=== PATIENT | male | born 1965 | race Hispanic/Latino ===

== ENCOUNTER 2018-06-16 13:26 | Observation (INO) | payer MEDICARE, OTHER ==
--- NOTE | 2018-06-16 14:38 | ED PDOC ---
HPI: Chest Pain Time Seen by Provider: 06/16/18 13:45 Chief Complaint (Nursing): Chest Pain History Per: Patient History/Exam Limitations: no limitations Onset/Duration Of Symptoms: Hrs (6) Current Symptoms Are (Timing): Better Severity: Mild Pain Scale Rating Of: 2 Quality: Dull Modifying Factors: None Exacerbating Factors: None Alleviating Factors: Rest Nitro Therapy Administered: 1, Per ED Past Medical History Reviewed: Historical Data, Nursing Documentation, Vital Signs Vital Signs: Last Vital Signs Temp 98.4 F 06/16/18 13:37 Pulse 95 H 06/16/18 13:37 Resp 16 06/16/18 13:37 BP 120/92 H 06/16/18 13:37 Pulse Ox 98 06/16/18 13:37 Primary Care Provider: Non [facility] Provider, - Medical History PMH: HTN, Pneumothorax - Surgical History Surgical History: No Surg Hx - Family History Family History: States: No Known Family Hx - Home Medications Home Medications: Ambulatory Orders Medication Instructions Recorded Atenolol [Tenormin] 25 mg PO DAILY 06/16/18 Atorvastatin [Lipitor] 10 mg PO DAILY 06/16/18 Citalopram [celeXA] 20 mg PO DAILY 06/16/18 - Allergies Allergies/Adverse Reactions: Allergies Allergy/AdvReac Type Severity Reaction Status Date / Time No Known Allergies Allergy Verified 06/16/18 13:31 TORRIE Risk Score for UA/NSTEMI - TORRIE Risk Score Age > 64: NO 3 or more CAD Risk Factors: YES Known CAD (Stenosis greater than 50%): NO Aspirin use in past 7 days: NO Severe Angina: NO EKG ST changes greater than 0.5mm: NO Positive Cardiac Marker: NO TORRIE Score: 1 Risk %: 5% Wells Criteria for PE - Wells Criteria for Pulmonary Embolism Clinical Signs and Symptoms of DVT: No P.E is #1 Diagnosis, or Equally Likely: No Heart Rate >100: No Immobilization at least 3 days;Surgery previous 4 weeks: No Previous, objectively diagnosed PE or DVT: No Hemoptysis: No Malignancy w/treatment within 6 months, or palliative: No Total Score: 0 Review of Systems ROS Statement: Except As Marked, All Systems Reviewed And Found Negative Physical Exam - Reviewed Nursing Documentation Reviewed: Yes Vital Signs Reviewed: Yes - Physical Exam Appears: Positive for: Non-toxic, No Acute Distress Head Exam: Positive for: ATRAUMATIC, NORMAL INSPECTION Skin: Positive for: Normal Color, Warm, Dry Eye Exam: Positive for: EOMI - Laboratory Results Result Diagrams: 06/17/18 04:35 06/17/18 04:35 - ECG O2 Sat by Pulse Oximetry: 98 Medical Decision Making Medical Decision Making: Impression Chest pain Diff include ACS, PE, pneumonia Plan Labs CXR Reassess ASA PO Nitro PO Disposition - Clinical Impression Clinical Impression: Chest pain - Patient ED Disposition Is Patient to be Admitted: Yes Discussed With : Kobi Brown Doctor Will See Patient In The: Hospital Counseled Patient/Family Regarding: Studies Performed, Diagnosis - Disposition Disposition Time: 15:00 Condition: FAIR - Pt Status Changed To: Hospital Disposition Of: Observation - POA Present On Arrival: None
[2018-06-16 15:08] LABS: BLOOD UREA NITROGEN 15 mg/dl (9-20); GFR NON-AFRICAN AMERICAN > 60
[2018-06-16 15:23] LABS: BASO % 0.4 % (0.0-2.0); EOS # 0.3 K/uL (0.0-0.7); HEMOGLOBIN 14.7 g/dL (12.0-18.0); LYMPH # 1.4 K/uL (1.0-4.3); MEAN CELL VOLUME 87.4 fl (80.0-94.0); MEAN CORPUSCULAR HEMOGLOBIN 29.8 pg (27.0-31.0); MEAN CORPUSCULAR HGB CONC 34.1 g/dL (33.0-37.0); MEAN PLATELET VOLUME 8.3 fl (7.2-11.7); MONO # 0.8 K/uL (0.0-0.8); MONO % 7.9 % (0.0-10.0); NEUT # 8.1 K/uL (1.8-7.0); NEUT % 75.7 % (50.0-75.0); NRBC % 0.1 % (0.0-0.0); RBC 4.94 Mil/uL (4.40-5.90); RED CELL DISTRIBUTION WIDTH 12.7 % (11.5-14.5); WHITE BLOOD COUNT 10.7 K/uL (4.8-10.8)
--- NOTE | 2018-06-16 15:36 | RAD ---
Date of service: 06/16/2018 PROCEDURE: CHEST RADIOGRAPH, 1 VIEW HISTORY: chest pain COMPARISON: None available. FINDINGS: LUNGS: Clear. PLEURA: No pneumothorax or pleural fluid seen. CARDIOVASCULAR: No aortic atherosclerotic calcification present. No radiographic findings to suggest acute or significant cardiovascular disease. OSSEOUS STRUCTURES: No significant abnormalities. VISUALIZED UPPER ABDOMEN: Normal. OTHER FINDINGS: None. IMPRESSION: No active disease.
[2018-06-17 06:48] LABS: INR 1.1; PROTHROMBIN TIME 12.4 Seconds (9.8-13.1)
[2018-06-17 06:53] LABS: MEAN CELL VOLUME 87.7 fl (80.0-94.0); MEAN CORPUSCULAR HEMOGLOBIN 29.8 pg (27.0-31.0); RBC 5.03 Mil/uL (4.40-5.90); RED CELL DISTRIBUTION WIDTH 12.8 % (11.5-14.5); WHITE BLOOD COUNT 8.9 K/uL (4.8-10.8)
[2018-06-17 07:03] VITALS: RESP 20
[2018-06-17 07:09] LABS: ALB/GLOB RATIO 1.4 (1.0-2.1); ALBUMIN 4.3 g/dL (3.5-5.0); ALT/SGPT 31 U/L (21-72); AST/SGOT 33 U/L (17-59); BLOOD UREA NITROGEN 13 mg/dl (9-20); CALCIUM 8.8 mg/dL (8.4-10.2); GFR NON-AFRICAN AMERICAN > 60
--- NOTE | 2018-06-17 11:43 | CARD ---
APPROVED REPORT Date of service: 06/17/2018 EXAM: Two-dimensional and M-mode echocardiogram with Doppler and color Doppler. Other Information Quality : AverageRhythm : NSR INDICATION Chest Pain 2D DIMENSIONS IVSd1.28 (0.7-1.1cm)LVDd4.28 (3.9-5.9cm) PWd1.06 (0.7-1.1cm)IVSs1.53 (0.8-1.2cm) LVDs3.33 (2.5-4.0cm)FS (%) 22.2 % PWs0.93 (0.8-1.2cm)SV43.94 ml LVEF (%)49.5 (>50%)CO3.03 L/min M-Mode DIMENSIONS Left Atrium (MM)3.97 (2.5-4.0cm)Aortic Root2.91 (2.2-3.7cm) Aortic Cusp Exc.1.89 (1.5-2.0cm) Aortic Valve AoV Peak Fiaxnxan733.6cm/sAoV VTI22.7cmAO Peak GR.7mmHg LVOT Peak Dljjsmbz589.2cm/sLVOT VTI21.21cmAO Mean GR.4mmHg Mitral Valve MV E Iarddmbv51.1cm/sMV DECEL SINI033mjYL A Zxogjgxy59.6cm/s MV MJE06deY/A ratio0.9MVA (PHT)2.75cm2 TDI Lateral E' Peak V7.50cm/sMedial E' Peak V6.19cm/sE/Lateral E'9.2 E/Medial E'11.2 Pulmonary Valve PV Peak Mvbyjijf54.8cm/s Tricuspid Valve TR Peak Pcuhwder965qc/sTR Peak Gr.42qbWdHZGP68pjJk LEFT VENTRICLE The left ventricle is normal size. There is normal left ventricular wall thickness. The left ventricular systolic function is normal. The estimated ejection fraction is 55-60% No regional wall motion abnormalities noted.. Transmitral Doppler flow pattern is Grade I-abnormal relaxation pattern. No left ventricle thrombus noted on this study. There is no ventricular septal defect visualized. There is no left ventricular aneurysm. There is no mass noted in the left ventricle. RIGHT VENTRICLE The right ventricle is normal size. There is normal right ventricular wall thickness. The right ventricular systolic function is normal. ATRIA The left atrium is borderline dilated. The right atrium size is normal. The interatrial septum is intact with no evidence for an atrial septal defect. AORTIC VALVE The aortic valve is normal in structure. No aortic regurgitation is present. There is no aortic valvular stenosis. There is no aortic valvular vegetation. MITRAL VALVE Posterior mitral leaftlet is thickened and cannot rule out the possibility of vegetation. Correlate clinically. There is no evidence of mitral valve prolapse. There is no mitral valve stenosis. There is trace mitral valve regurgitation noted. TRICUSPID VALVE The tricuspid valve is normal in structure. There is mild tricuspid valve regurgitation noted. RVSP is calculated at 23 mm Hg. There is no tricuspid valve prolapse or vegetation. There is no tricuspid valve stenosis. PULMONIC VALVE The pulmonary valve is normal in structure. There is trace pulmonic valvular regurgitation. There is no pulmonic valvular stenosis. GREAT VESSELS The aortic root is normal in size. The ascending aorta is normal in size. The pulmonary artery is normal. The IVC is normal in size and collapses >50% with inspiration. PERICARDIAL EFFUSION There is no pericardial effusion. There is no pleural effusion. <Conclusion> The estimated ejection fraction is 55-60% Transmitral Doppler flow pattern is Grade I-abnormal relaxation pattern. The left atrium is borderline dilated. Posterior mitral leaftlet is thickened and cannot rule out the possibility of vegetation. Correlate clinically and consider further testing as needed. There is trace mitral valve regurgitation noted. There is mild tricuspid valve regurgitation noted. RVSP is calculated at 23 mm Hg.
--- NOTE | 2018-06-17 11:53 | CARD ---
APPROVED REPORT Date of service: 06/16/2018 EKG Measurement Heart [id number] MD [id number] <Conclusion> Sinus rhythm with occasional premature ventricular complexes Otherwise normal ECG
--- NOTE | 2018-06-17 17:17 | CP.PCM.HP ---
History of Present Illness - History of Present Illness History of Present Illness: CC: Chest Pain. 53 y/o M, with PMHx: HTN, Seasonal allergy, Cyst Lung removed, MVP, Mitral valve repair and Pneumothorax. Pt came to [facility] on 05/17/18 to be evaluated for Chest pain L side, described as intermittent, dull, tightness, of mild to moderate intensity 2-6:10, radiating to L neck, onset DOA, associated to dyspnea/SYLVESTER, Alleviated when resting /inactivity. Patient has a private Osteopathic Physician and to have SST out patient Worsening symptoms: Physical exertion walking up few flights of stair, dizziness, lightheadedness. Aggravated factor: Exercise/movements. Pt denied: Fever, chills, n/v/d, abdominal pain, urinary symptoms, palpitations, cough, sick contact, recent travel out of [facility]. Present on Admission - Present on Admission Any Indicators Present on Admission: No Review of Systems - Constitutional Constitutional: Fatigue - EENT Eyes: Other (negative) Ears: Other (negative) Nose/Mouth/Throat: Other (negative) - Cardiovascular Cardiovascular: Chest Pain with Activity, Dyspnea on Exertion, Lightheadedness - Respiratory Respiratory: Cough, Dyspnea, Dyspnea on Exertion - Gastrointestinal Gastrointestinal: Other (negative) - Genitourinary Genitourinary: Other (negative) - Musculoskeletal Musculoskeletal: Neck Pain - Integumentary Integumentary: Other (negative) - Neurological Neurological: Other (negative) - Psychiatric Psychiatric: Other (negative) - Endocrine Endocrine: Other (negative) - Hematologic/Lymphatic Hematologic: Other (negative) Past Patient History - Infectious Disease Hx of Infectious Diseases: None - Past Medical History & Family History Past Medical History?: Yes Pertinent Family History: Unknown - Past Social History Smoking Status: Never Smoked Alcohol: None Drugs: Denies Home Situation {Lives}: Alone - CARDIAC Hx Cardiac Disorders: Yes Hx Hypertension: Yes Hx Mitral Valve Prolapse: Yes - PULMONARY Hx Respiratory Disorders: Yes Other/Comment: Cysts on lungs, seaonsal allergies, lung collapse (pneumothroax) - NEUROLOGICAL Hx Neurological Disorder: No - HEENT Hx HEENT Problems: No - RENAL Hx Chronic Kidney Disease: No - ENDOCRINE/METABOLIC Hx Endocrine Disorders: No - HEMATOLOGICAL/ONCOLOGICAL Hx Blood Disorders: No - INTEGUMENTARY Hx Dermatological Problems: No - MUSCULOSKELETAL/RHEUMATOLOGICAL Hx Musculoskeletal Disorders: No Hx Falls: No - GASTROINTESTINAL Hx Gastrointestinal Disorders: No - GENITOURINARY/GYNECOLOGICAL Hx Genitourinary Disorders: No - PSYCHIATRIC Hx Psychophysiologic Disorder: No Hx Substance Use: No - SURGICAL HISTORY Hx Surgeries: Yes Hx Pulmonary Surgery: Yes (Remove cysts and reinflate lungs) Hx Valve Replacement: Yes (valve repair, no replacement) Other/Comment: vasectomy - ANESTHESIA Hx Anesthesia: Yes Hx Anesthesia Reactions: No Hx Malignant Hyperthermia: No Has any member of the family had a problem w/ anesthesia?: No Meds Allergies/Adverse Reactions: Allergies Allergy/AdvReac Type Severity Reaction Status Date / Time No Known Allergies Allergy Verified 06/16/18 13:31 Physical Exam - Constitutional Appears: No Acute Distress - Head Exam Head Exam: NORMAL INSPECTION - Eye Exam Eye Exam: PERRL - ENT Exam ENT Exam: Normal Exam - Neck Exam Neck exam: Positive for: Normal Inspection - Respiratory Exam Respiratory Exam: NORMAL BREATHING PATTERN - Cardiovascular Exam Cardiovascular Exam: REGULAR RHYTHM - GI/Abdominal Exam GI & Abdominal Exam: Normal Bowel Sounds, Soft - Extremities Exam Extremities exam: Positive for: normal inspection - Back Exam Back exam: NORMAL INSPECTION - Neurological Exam Neurological exam: Alert, Oriented x3 Additional comments: No motor/sensory deficit - Psychiatric Exam Psychiatric exam: Normal Mood - Skin Skin Exam: Normal Color, Warm Results - Vital Signs Recent Vital Signs: Last Vital Signs Temp 98.0 F 06/17/18 15:46 Pulse 66 06/17/18 15:46 Resp 20 06/17/18 15:46 BP 118/77 06/17/18 15:46 Pulse Ox 96 06/17/18 15:46 reviewed J.P. - Labs Result Diagrams: 06/17/18 04:35 06/17/18 04:35 Labs: Laboratory Results - last 24 hr 06/16/18 06/17/18 06/17/18 20:15 04:35 04:35 WBC 8.9 RBC 5.03 Hgb 15.0 Hct 44.1 MCV 87.7 MCH 29.8 MCHC 34.0 RDW 12.8 Plt Count 257 PT INR Sodium 138 Potassium 4.2 Chloride 100 Carbon Dioxide 29 Anion Gap 13 BUN 13 Creatinine 0.8 Est GFR ( Amer) > 60 Est GFR (Non-Af Amer) > 60 Random Glucose 107 Calcium 8.8 Total Bilirubin 0.8 AST 33 ALT 31 Alkaline Phosphatase 33 L Troponin I < 0.0120 < 0.0120 Total Protein 7.3 Albumin 4.3 Globulin 3.0 Albumin/Globulin Ratio 1.4 Thyroxine (T4) 7.23 TSH 3rd Generation 2.30 06/17/18 04:35 WBC RBC Hgb Hct MCV MCH MCHC RDW Plt Count PT 12.4 INR 1.1 Sodium Potassium Chloride Carbon Dioxide Anion Gap BUN Creatinine Est GFR ( Amer) Est GFR (Non-Af Amer) Random Glucose Calcium Total Bilirubin AST ALT Alkaline Phosphatase Troponin I Total Protein Albumin Globulin Albumin/Globulin Ratio Thyroxine (T4) TSH 3rd Generation reviewed J.P. - EKG Data EKG comments: reviewed J.P. - Imaging and Cardiology Echocardiogram Status: Report reviewed by me ([email or web address]) Assessment & Plan (1) Chest pain Status: Acute Priority: High (2) Typical angina Status: Acute Priority: High (3) Hx of mitral valve prolapse Status: Chronic (4) Hx of mitral valve repair Status: Chronic (5) Dyslipidemia Status: Chronic - Assessment and Plan (Free Text) Plan: Pt feeling well, asymptomatic, Troponin negative, Echo done, to be reviewed and further recommendation by e business consultant - Date & Time Date: 06/17/18 Time: 14:00
--- NOTE | 2018-06-17 19:02 | CP.PCM.CON ---
History of Present Illness - History of Present Illness History of Present Illness: 53 yo male with Chest pressure x 1 day. Pt grades pressure as 8/10 at peak, over left chest and mid chest with radiation to neck. comes on with exertion and relieved with rest for 5-10 min. associated with dyspnea and fatigue. Tim es palp, or diaphoresis. positive LH with episodes. pt has felt more still over past several months as well as chronic cough which increases with laying down and was not improved with abx. pt denies orthopnea, pnd or traci. denies immobility or leg pain. no f/c/n/v/d/c. trop x 3 negative. ekg shows no ischemia. echo images personally reviewed - nml ef. no MR. no effusion. pt already on asa 81mg daily. pt scheduled for stress test in 3 weeks with his company controller Dr Grabiel Lopez. Review of Systems - Constitutional Constitutional: As Per HPI. absent: Anorexia, Chills, Daytime Sleepiness, Excessive Sweating, Fatigue, Fever, Frequent Falls, Headache, Increased Appetite, Lethargy, Malaise, Night Sweats, Snoring, Sleep Apnea, Weight Gain, Weight Loss, Weakness, Other - EENT Eyes: As Per HPI. absent: Blind Spots, Blurred Vision, Change in Vision, Decreased Night Vision, Diplopia, Discharge, Dry Eye, Exophthalmos, Floaters, Irritation, Itchy Eyes, Loss of Peripheral Vision, Pain, Photophobia, Requires Corrective Lenses, Sees Flashes, Spots in Vision, Tunnel Vision, Other Visual Disturbances, Loss of Vision, Other Ears: As Per HPI. absent: Decreased Hearing, Ear Discharge, Ear Pain, Tinnitus, Abnormal Hearing, Disequilibrium, Dizziness, Other Nose/Mouth/Throat: As Per HPI. absent: Epistaxis, Nasal Congestion, Nasal Discharge, Nasal Obstruction, Nasal Trauma, Nose Pain, Post Nasal Drip, Sinus Pain, Sinus Pressure, Bleeding Gums, Change in Voice, Dental Pain, Dry Mouth, Dysphagia, Halitosis, Hoarsness, Lip Swelling, Mouth Lesions, Mouth Pain, Odynophagia, Sore Throat, Throat Swelling, Tongue Swelling, Facial Pain, Neck Pain, Neck Mass, Other - Cardiovascular Cardiovascular: As Per HPI, Chest Pain with Activity, Dyspnea on Exertion, Pain Radiating to Arm/Neck/Jaw, Lightheadedness. absent: Acrocyanosis, Chest Pain, Chest Pain at Rest, Claudication, Diaphoresis, Dyspnea, Edema, Irregular Heart Rhythm, Leg Edema, Leg Ulcers, Orthopnea, Palpitations, Paroxysmal Nocturnal Dyspnea, Pedal Edema, Radiating Pain, Rapid Heart Rate, Slow Heart Rate, Syncope, Other - Respiratory Respiratory: As Per HPI, Cough, Dyspnea on Exertion, Chest Congestion. absent: Dyspnea, Hemoptysis, Wheezing, Snoring, Stridor, Pain on Inspiration, Excessive Mucous Production, Change in Mucous Color, Pain with Coughing, Other - Gastrointestinal Gastrointestinal: As Per HPI. absent: Abdominal Pain, Belching, Bloating, Change in Bowel Habits, Change in Stool Character, Coffee Ground Emesis, Constipation, Cramping, Diarrhea, Dyspepsia, Dysphagia, Early Satiety, Excessive Flatus, Fecal Incontinence, Heartburn, Hematemesis, Hematochezia, Loose Stools, Melena, Nausea, Odynophagia, Temesmus, Vomiting, Other - Genitourinary Genitourinary: As Per HPI. absent: Change in Urinary Stream, Difficulty Urinating, Dysuria, Flank Pain, Hematuria, Pyuria, Nocturia, Urinary Incontin ence, Urinary Frequency, Urinary Hesitance, Urinary Urgency, Voiding Freq/Small Amts, Freq UTI, Hx Renal/Bladder Calculi, Hx /Renal Surgery, Bladder Distension, Other - Reproductive: Male Reproductive:Male: As Per HPI - Musculoskeletal Musculoskeletal: As Per HPI. absent: Abnormal Gait, Arthralgias, Atrophy, Back Pain, Deformity, Joint Swelling, Limited Range of Motion, Loss of Height, Muscle Cramps, Muscle Weakness, Myalgias, Neck Pain, Numbness, Radiating Pain into Limb, Stiffness, Tingling, Other - Integumentary Integumentary: As Per HPI. absent: Acne, Alopecia, Bleeding Lesions, Change in Hair, Change in Nails, Change in Pigmentation, Changing Lesions, Dry Skin, Eryt charlette, Furuncle, Hirsutism, Lesions, New Lesions, Non-Healing Lesions, Photosensitivity, Pruritus, Rash, Skin Pain, Skin Ulcer, Sores, Striae, Swelling, Unusual Bruising, Wounds, Jaundice, Other - Neurological Neurological: As Per HPI. absent: Abnormal Gait, Abnormal Hearing, Abnormal Movements, Abnormal Speech, Behavioral Changes, Burning Sensations, Confusion, Convulsions, Disequilibrium, Dizziness, Numbness, Focal Weakness, Frequent Falls, Headaches, Lack of Coordination, Loss of Vision, Memory Loss, Paresthesias, Radicular Pain, Restless Legs, Sensory Deficit, Syncope, Tingling, Tremor, Vertigo, Weakness, Other Visual Disturbances, Other - Psychiatric Psychiatric: As Per HPI. absent: Abnormal Sleep Pattern, Anhedonia, Anxiety, Auditory Hallucinations, Behavioral Changes, Change in Appetite, Change in Libid o, Confusion, Depression, Difficulty Concentrating, Hallucinations, Homicidal Ideation, Hopelessness, Irritability, Memory Loss, Mood Swings, Panic Attacks, Paranoia, Suicidal Ideation, Visual Hallucinations, Tactile Hallucinations, Other - Endocrine Endocrine: As Per HPI. absent: Change in Body Appearance, Change in Libido, Cold Intolorance, Deepening of Voice, Excessive Sweating, Fatigue, Flushing, Heat Intolorance, Increase in Ring/Shoe/Hat Size, Palpitations, Polydipsia, Polyphagia, Polyuria, Other - Hematologic/Lymphatic Hematologic: As Per HPI. absent: Easy Bleeding, Easy Bruising, Lymphadenopathy, Other Past Patient History - Infectious Disease Hx of Infectious Diseases: None - Past Medical History & Family History Past Medical History?: Yes - Past Social History Smoking Status: Never Smoked Chewing Tobacco Use: No Cigar Use: No Alcohol: Occasional Drugs: Denies Home Situation {Lives}: Alone Domestic Violence: Negative - CARDIAC Hx Cardiac Disorders: Yes Hx Hypertension: Yes Hx Mitral Valve Prolapse: Yes (and hx of mr and MV repair) - PULMONARY Hx Respiratory Disorders: Yes Other/Comment: Cysts on lungs, seaonsal allergies, lung collapse (pneumothroax) - NEUROLOGICAL Hx Neurological Disorder: No - HEENT Hx HEENT Problems: No - RENAL Hx Chronic Kidney Disease: No - ENDOCRINE/METABOLIC Hx Endocrine Disorders: No - HEMATOLOGICAL/ONCOLOGICAL Hx Blood Disorders: No - INTEGUMENTARY Hx Dermatological Problems: No - MUSCULOSKELETAL/RHEUMATOLOGICAL Hx Musculoskeletal Disorders: No Hx Falls: No - GASTROINTESTINAL Hx Gastrointestinal Disorders: No - GENITOURINARY/GYNECOLOGICAL Hx Genitourinary Disorders: No - PSYCHIATRIC Hx Psychophysiologic Disorder: No Hx Substance Use: No - SURGICAL HISTORY Hx Surgeries: Yes Hx Pulmonary Surgery: Yes (Remove cysts and reinflate lungs) Hx Valve Replacement: Yes (valve repair, no replacement) Other/Comment: vasectomy - ANESTHESIA Hx Anesthesia: Yes Hx Anesthesia Reactions: No Hx Malignant Hyperthermia: No Has any member of the family had a problem w/ anesthesia?: No Meds Allergies/Adverse Reactions: Allergies Allergy/AdvReac Type Severity Reaction Status Date / Time No Known Allergies Allergy Verified 06/16/18 13:31 - Medications Medications: Current Medications Aspirin (Aspirin) 325 mg PO DAILY [facility] Atenolol (Tenormin) 25 mg PO DAILY [facility] Last Admin: 06/17/18 10:24 Dose: 25 mg Atorvastatin Calcium (Lipitor) 10 mg PO DAILY [facility] Last Admin: 06/17/18 10:24 Dose: 10 mg Citalopram Hydrobromide (Celexa) 20 mg PO DAILY [facility] Last Admin: 06/17/18 10:24 Dose: 20 mg Physical Exam - Constitutional Appears: Well - Head Exam Head Exam: ATRAUMATIC, NORMAL INSPECTION, NORMOCEPHALIC - Eye Exam Eye Exam: EOMI, Normal appearance, PERRL. absent: Conjunctival injection, Nystagmus, Periorbital swelling, Periorbital tenderness, Scleral icterus Pupil Exam: NORMAL ACCOMODATION, PERRL. absent: Fixed, Irregular, Miosis, Mydriatic, Unequal - ENT Exam ENT Exam: Mucous Membranes Moist, Normal Exam. absent: Mucous Membranes Dry, Normal External Ear Exam, Normal Oropharynx, TM's Normal Bilaterally - Neck Exam Neck exam: Positive for: Normal Inspection. Negative for: Full Rom, Lymphadenopathy, Meningismus, Tenderness, Thyromegaly - Respiratory Exam Respiratory Exam: Clear to Auscultation Bilateral, NORMAL BREATHING PATTERN. absent: Accessory Muscle Use, Chest Wall Tenderness, Decreased Breath Sounds, Prolonged Expiratory Phase, Rales, Rhonchi, Wheezes, Respiratory Distress, Stridor - Cardiovascular Exam Cardiovascular Exam: REGULAR RHYTHM, +S1, +S2. absent: Bradycardia, Tachycardia, Clicks, Diastolic murmur, Gallop, Irregular Rhythm, JVD, RRR, Rubs, +S4, Systolic Murmur - GI/Abdominal Exam GI & Abdominal Exam: Normal Bowel Sounds, Soft. absent: Bruit, Diminished Bowel Sounds, Distended, Firm, Guarding, Hernia, Hyperactive Bowel Sounds, Hypoactive Bowel Sounds, Mass, Organomegaly, Pulsatile Mass, Rebound, Rigid, Tenderness - Rectal Exam Rectal Exam: Deferred - Extremities Exam Extremities exam: Positive for: normal capillary refill, normal inspection, pedal pulses present. Negative for: calf tenderness, full ROM, joint swelling, pedal edema, tenderness - Back Exam Back exam: NORMAL INSPECTION. absent: CVA tenderness (L), CVA tenderness (R), FULL ROM, muscle spasm, paraspinal tenderness, rash noted, tenderness, vertebral tenderness - Neurological Exam Neurological exam: Alert, CN II-XII Intact, Normal Gait, Oriented x3, Reflexes Normal - Psychiatric Exam Psychiatric exam: Normal Affect, Normal Mood - Skin Skin Exam: Dry, Intact, Normal Color, Warm Results - Vital Signs Recent Vital Signs: Last Vital Signs Temp 98.0 F 06/17/18 15:46 Pulse 66 06/17/18 15:46 Resp 20 06/17/18 15:46 BP 118/77 06/17/18 15:46 Pulse Ox 96 06/17/18 15:46 - Labs Result Diagrams: 06/17/18 04:35 06/17/18 04:35 Labs: Laboratory Results - last 24 hr 06/16/18 06/17/18 06/17/18 20:15 04:35 04:35 WBC 8.9 RBC 5.03 Hgb 15.0 Hct 44.1 MCV 87.7 MCH 29.8 MCHC 34.0 RDW 12.8 Plt Count 257 PT INR Sodium 138 Potassium 4.2 Chloride 100 Carbon Dioxide 29 Anion Gap 13 BUN 13 Creatinine 0.8 Est GFR ( Amer) > 60 Est GFR (Non-Af Amer) > 60 Random Glucose 107 Calcium 8.8 Total Bilirubin 0.8 AST 33 ALT 31 Alkaline Phosphatase 33 L Troponin I < 0.0120 < 0.0120 Total Protein 7.3 Albumin 4.3 Globulin 3.0 Albumin/Globulin Ratio 1.4 Thyroxine (T4) 7.23 TSH 3rd Generation 2.30 06/17/18 04:35 WBC RBC Hgb Hct MCV MCH MCHC RDW Plt Count PT 12.4 INR 1.1 Sodium Potassium Chloride Carbon Dioxide Anion Gap BUN Creatinine Est GFR ( Amer) Est GFR (Non-Af Amer) Random Glucose Calcium Total Bilirubin AST ALT Alkaline Phosphatase Troponin I Total Protein Albumin Globulin Albumin/Globulin Ratio Thyroxine (T4) TSH 3rd Generation - EKG Data EKG Interpreted by: Myself EKG shows normal: Sinus rhythm Rate: Normal Assessment & Plan (1) Typical angina Status: Acute (2) Hx of mitral valve prolapse Status: Chronic (3) Hx of mitral valve repair Status: Chronic (4) Dyslipidemia Status: Chronic (5) STILL (dyspnea on exertion) Status: Resolved (6) Chronic cough Status: Acute Comment: MAY BE DUE TO SILENT GERD OR ALLERGIES. - Assessment and Plan (Free Text) Plan: PT HAS RULED OUT FOR [place]. HE HAS BEEN AMBULATING IN HOSPITAL WITHOUT CP OR ABN ON TELE. I DISCUSSED THE NEED FOR STRESS TESTING [place]. PT IS AWARE OF RISK OF LEAVING HOSPITAL AND HAVING IT DONE OUTPT. WE DISCUSSED THE RISK OF [place], ARRYTHMIA, SHOULD HE HAVE UNDERLYING CAD. PT HAS AGREED TO RETURN IMMEDIATELY TO ER IF CP RETURNS. WILL HAVE PT INCREASE ASA TO 325MG. HE WILL HAVE ST WITH HIS HOUSEHOLD COOK MOVED UP TO THIS WEEK. IF HE CANNOT GET IN THIS WEEK THEN WE WILL DO IT OUTPT HERE. ECHO REVIEWED. NML EF, POST OP SEPTUM. MV APPEARS WELL SEATED, NO MR. G1 DIASTOLIC DYSFUNCTION. MILD TR. NO PHTN. DW PT AT LENGTH. 65 MIN TOTAL CARE TIME.
[2018-06-17 20:13] VITALS: BP 114/79; TEMP 97.8; O2SAT 97
[2018-06-17 20:50] VITALS: PULSE 74
--- NOTE | 2018-06-18 13:32 | CP.PCM.DIS ---
Provider - Provider Date of Admission: 06/16/18 15:26 Attending physician: Kobi Brown MD Primary care physician: Non [facility] Provider Consults: 06/16/18 15:28 Cardiology Consult Stat Comment: Consulting Provider: Karely Hopkins Consulting Physician: Karely Hopkins Reason for Consult: chest pain Diagnosis - Discharge Diagnosis (1) Chest pain Status: Acute Priority: High (2) Typical angina Status: Acute Priority: High (3) Hx of mitral valve prolapse Status: Chronic (4) Hx of mitral valve repair Status: Chronic (5) Dyslipidemia Status: Chronic Hospital Course - Lab Results Lab Results: Most Recent Lab Values WBC 8.9 K/uL (4.8-10.8) 06/17/18 04:35 RBC 5.03 Mil/uL (4.40-5.90) 06/17/18 04:35 Hgb 15.0 g/dL (12.0-18.0) 06/17/18 04:35 Hct 44.1 % (35.0-51.0) 06/17/18 04:35 MCV 87.7 fl (80.0-94.0) 06/17/18 04:35 MCH 29.8 pg (27.0-31.0) 06/17/18 04:35 MCHC 34.0 g/dL (33.0-37.0) 06/17/18 04:35 RDW 12.8 % (11.5-14.5) 06/17/18 04:35 Plt Count 257 K/uL (130-400) 06/17/18 04:35 MPV 8.3 fl (7.2-11.7) 06/16/18 14:10 Neut % (Auto) 75.7 % (50.0-75.0) H 06/16/18 14:10 Lymph % (Auto) 13.0 % (20.0-40.0) L 06/16/18 14:10 Esmeralda % (Auto) 7.9 % (0.0-10.0) 06/16/18 14:10 Eos % (Auto) 3.0 % (0.0-4.0) 06/16/18 14:10 Baso % (Auto) 0.4 % (0.0-2.0) 06/16/18 14:10 Neut # (Auto) 8.1 K/uL (1.8-7.0) H 06/16/18 14:10 Lymph # (Auto) 1.4 K/uL (1.0-4.3) 06/16/18 14:10 Esmeralda # (Auto) 0.8 K/uL (0.0-0.8) 06/16/18 14:10 Eos # (Auto) 0.3 K/uL (0.0-0.7) 06/16/18 14:10 Baso # (Auto) 0.0 K/uL (0.0-0.2) 06/16/18 14:10 PT 12.4 Seconds (9.8-13.1) 06/17/18 04:35 INR 1.1 06/17/18 04:35 D-Dimer, Quantitative < 200 ng/mlDDU (0-230) 06/16/18 14:10 Sodium 138 mmol/l (132-148) 06/17/18 04:35 Potassium 4.2 MMOL/L (3.6-5.0) 06/17/18 04:35 Chloride 100 mmol/L (98-107) 06/17/18 04:35 Carbon Dioxide 29 mmol/L (22-30) 06/17/18 04:35 Anion Gap 13 (10-20) 06/17/18 04:35 BUN 13 mg/dl (9-20) 06/17/18 04:35 Creatinine 0.8 mg/dl (0.8-1.5) 06/17/18 04:35 Est GFR ( Amer) > 60 06/17/18 04:35 Est GFR (Non-Af Amer) > 60 06/17/18 04:35 Random Glucose 107 mg/dL (75-110) 06/17/18 04:35 Calcium 8.8 mg/dL (8.4-10.2) 06/17/18 04:35 Total Bilirubin 0.8 mg/dl (0.2-1.3) 06/17/18 04:35 AST 33 U/L (17-59) 06/17/18 04:35 ALT 31 U/L (21-72) 06/17/18 04:35 Alkaline Phosphatase 33 U/L (38-126) L 06/17/18 04:35 Troponin I < 0.0120 ng/mL (0.00-0.120) 06/17/18 04:35 Total Protein 7.3 G/DL (6.3-8.2) 06/17/18 04:35 Albumin 4.3 g/dL (3.5-5.0) 06/17/18 04:35 Globulin 3.0 gm/dL (2.2-3.9) 06/17/18 04:35 Albumin/Globulin Ratio 1.4 (1.0-2.1) 06/17/18 04:35 Thyroxine (T4) 7.23 ug/dl (5.5-11.0) 06/17/18 04:35 TSH 3rd Generation 2.30 mIU/ML (0.46-4.68) 06/17/18 04:35 Discharge Exam - Head Exam Head Exam: NORMAL INSPECTION Discharge Plan - Follow Up Plan Condition: FAIR Disposition: HOME/ ROUTINE Instructions: Chest Pain Referrals: Non [facility] Provider, [Primary Care Provider] -
== END 2018-06-17 20:30 | disposition home or self-care (01) ==
LOC: SUPCPDRO 13:26 → H.ER 13:26 → H.ERHOLD 15:26 → H.TEL 16:57
PROVIDERS: ADMIT Internal Medicine Pulmonary Disease; ATTEND Internal Medicine Pulmonary Disease
DX: I20.9 Angina pectoris, unspecified (principal); I34.1 Nonrheumatic mitral (valve) prolapse; Z79.82 Long term (current) use of aspirin; Z95.2 Presence of prosthetic heart valve; J30.2 Other seasonal allergic rhinitis; Z79.899 Other long term (current) drug therapy; E78.5 Hyperlipidemia, unspecified; I10 Essential (primary) hypertension
CPT/HCPCS: 36415; 71045; 80048; 80053; 84436; 84443; 84484; 85025; 85027; 85378; 85610; 93005; 93306; 99284; G0378